=== PATIENT | female | born 1940 | race Caucasian/White ===

== ENCOUNTER → 2019-02-23 | Outpatient (CLI) | payer OTHER | LOC: M.CT 11:13 | PROVIDERS: Internal Medicine | DX: R82.90 Unspecified abnormal findings in urine (principal); R06.02 Shortness of breath; R10.9 Unspecified abdominal pain; Z87.891 Personal history of nicotine dependence; Z72.89 Other problems related to lifestyle ==

== ENCOUNTER 2019-08-12 16:56 | Emergency (ER) | payer OTHER ==
[~2019-08-12] VITALS: Ht 154.9 cm; Wt 62.1 kg
[2019-08-12 18:49] VITALS: BP 127/52
== END 2019-08-12 18:50 | disposition home or self-care (01) ==
LOC: M.ERS 16:56
DX: S91.312A Laceration without foreign body, left foot, initial encounter (principal); W20.8XXA Other cause of strike by thrown, projected or falling object, initial encounter; Y93.89 Activity, other specified; Y92.098 Other place in other non-institutional residence as the place of occurrence of the external cause; Y99.9 Unspecified external cause status